=== PATIENT | female | born 1970 ===

== ENCOUNTER 2017-06-30 11:00 | Inpatient (IN) | payer OTHER ==
[2017-06-30] MEDS ORDERED: IRON159 MG (15:40)
[2017-06-30] MEDS ORDERED: GLIMEPIRIDE4 MG (15:40)
[2017-06-30] MEDS ORDERED: DIOVAN320 MG (15:40)
[2017-07-16] MEDS ORDERED: Mylicon 125MG PO (07:34)
[2017-07-16] MEDS ORDERED: GABAPENTIN600 MG PO (07:34)
[2017-07-16] MEDS ORDERED: IBUPROFEN800 MG PO (07:34)
[2017-07-16] MEDS ORDERED: DOCUSATE SODIU100 MG PO (07:34)
== END 2017-07-16 09:15 | disposition home or self-care (01) | DRG 743 ==
LOC: SURG 07-07 11:00 → OB/GYN 07-14 05:30 → O/R 07-14 05:30 → SURG 07-14 08:30 → OB/GYN 07-14 13:31
PROVIDERS: Obstetrics & Gynecology
PROC: 0DNW0ZZ Release Peritoneum, Open Approach (ICD-10-PCS; 2017-07-14)
PROC: 0UT50ZZ Resection of Right Fallopian Tube, Open Approach (ICD-10-PCS; 2017-07-14)
PROC: 0UT00ZZ Resection of Right Ovary, Open Approach (ICD-10-PCS; 2017-07-14)
PROC: 0UT90ZZ Resection of Uterus, Open Approach (ICD-10-PCS; principal; 2017-07-14 08:30)
DX: D25.1 Intramural leiomyoma of uterus (principal); N72 Inflammatory disease of cervix uteri